=== PATIENT | female | born 1955 | race Caucasian/White ===

== ENCOUNTER → 2017-03-20 | Outpatient (CLI) | payer BC, OTHER ==
[2017-03-20 18:37] LABS: ALB/GLOB RATIO 0.8 (0.9-2); ALT/SGPT 22 U/L (12-78); AST/SGOT 22 U/L (15-37); BLOOD UREA NITROGEN 23 mg/dl (7-18); CARBON DIOXIDE 27 mmol/L (21-32); CHLORIDE 105 mmol/L (98-107); CREATININE 0.91 mg/dl (0.60-1.20); GLUCOSE,FASTING 87 mg/dl (70-99); POTASSIUM 3.9 mmol/L (3.5-5.1); SODIUM 139 mmol/L (136-145)
[2017-03-20 18:39] LABS: ALKALINE PHOSPHATASE 81 U/L (45-117); CHOLESTEROL 205 mg/dl (0-200); CHOLESTEROL/HDL RATIO 3.3; HDL CHOLESTEROL 62 mg/dl; LDL CHOLESTEROL CALCULATED 126 mg/dl; TRIGLYCERIDES 86 mg/dl (0-150); VERY LOW DENSITY LIPOPROT CALC 17 mg/dl
== END | disposition home or self-care (01) ==
LOC: C.LABPBG 11:46
PROVIDERS: ATTEND Physician Assistant
DX: Z00.00 Encounter for general adult medical examination without abnormal findings (principal)

== ENCOUNTER → 2017-03-27 | Outpatient (CLI) | payer BC ==
[2017-03-27 16:53] LABS: BASO % 0.3 %; BASO ABS # 0.02 K/uL (0-0.2); COMPLETE YES; EOS % 3.3 %; HEMATOCRIT 41.1 % (37-47); IG% 0.2 %; LYMPH % 41.8 %; LYMPH ABS # 2.44 K/uL (1.2-3.4); MEAN CELL VOLUME 88.2 fL (80-100); MEAN CORPUSCULAR HEMOGLOBIN 29.6 pg (25-34); MEAN CORPUSCULAR HGB CONC 33.6 g/dl (32-36); MEAN PLATELET VOLUME 10.5 fL (7.4-10.4); MONO % 7.2 %; NEUT % 47.2 %; PLATELET COUNT 321 K/uL (130-400); RED BLOOD COUNT 4.66 M/uL (4.2-5.4); WHITE BLOOD COUNT 5.84 K/uL (4.8-10.8)
[2017-03-27 17:06] LABS: URINE APPEARANCE CLEAR (CLEAR); URINE BILIRUBIN NEG (NEG); URINE COLOR YELLOW; URINE NITRITE NEG (NEG); URINE SPECIFIC GRAVITY 1.019 (1.000-1.030); UROBILINOGEN NEG (NEG)
[2017-03-27 17:12] LABS: MANUAL MICROSCOPIC REQUIRED? NO; REVIEW REQ? NO
[2017-03-27 17:23] LABS: AST/SGOT 22 U/L (15-37)
[2017-03-27 17:24] LABS: ALT/SGPT 24 U/L (12-78)
[2017-03-31 04:59] LABS: ANTI-CENTROMERE AB <1.0 NEG AI (<1.0 NEG); ANTI-SS-A 3.6 POS AI (<1.0 NEG); ANTI-SS-B <1.0 NEG AI (<1.0 NEG); DNA ds CRITHIDIA NEGATIVE (NEGATIVE); Sm Antibody <1.0 NEG AI (<1.0 NEG)
== END | disposition home or self-care (01) ==
LOC: C.LAB1850 15:17
PROVIDERS: ATTEND Internal Medicine Rheumatology
DX: M32.9 Systemic lupus erythematosus, unspecified (principal); Z79.899 Other long term (current) drug therapy; Z79.1 Long term (current) use of non-steroidal anti-inflammatories (NSAID)

== ENCOUNTER → 2017-04-10 | Outpatient (CLI) | payer BC ==
--- NOTE | 2017-04-18 12:38 | MAMMOGRAPHY REPORT ---
BILATERAL DIGITAL SCREENING MAMMOGRAM TOMOSYNTHESIS WITH CAD: 04/10/2017 CLINICAL HISTORY: Routine screening. Patient has no complaints. TECHNIQUE: Breast tomosynthesis in addition to standard 2D mammography was performed. Current study was also evaluated with a Computer Aided Detection (CAD) system. COMPARISON: Comparison is made to exams dated: 08/31/2012 mammogram, 03/31/2011 mammogram, 07/24/2009 fine needle aspiration, 07/20/2009 mammogram, and 09/06/2007 mammogram - [facility]. BREAST COMPOSITION: There are scattered areas of fibroglandular density in both breasts. FINDINGS: There are possible grouped calcifications in the left 12:00 and right superior breast, for which spot magnification views are recommended for further evaluation. The remainder of both breasts demonstrate no suspicious masses, calcifications, or areas of edi architect ural distortion. Circumscribed round 11 mm mass in the right upper outer quadrant is stable. A few other small round/oval circumscribed masses are also noted bilaterally, which likely represent cysts. IMPRESSION: ACR BI-RADS CATEGORY 0: INCOMPLETE EVALUATION: NEED ADDITIONAL IMAGING EVALUATION Bilateral calcifications, for which additional imaging evaluation is recommended. The patient will b e called to schedule an appointment. Approximately 10% of breast cancers are not detected with mammography. A negative mammographic report should not delay biopsy if a clinically suggestive mass is present. Julia Cooper M.D. ah/:04/14/2017 16:28:06 Corner Bead Operator: Mikki CHRISTENSEN)(M), [facility] letter sent: Addl Imaging 0 BI-RADS Code: ACR BI-RADS Category 0: Incomplete Evaluation: Need Additional Imaging Evaluation
== END | disposition home or self-care (01) ==
LOC: C.MAMM 07:44
PROVIDERS: ATTEND Physician Assistant
DX: Z12.31 Encounter for screening mammogram for malignant neoplasm of breast (principal)

== ENCOUNTER → 2017-09-04 | Outpatient (CLI) | payer OTHER ==
--- NOTE | 2017-09-04 13:12 | DIAGNOSTIC IMAGING REPORT ---
RIGHT KNEE 2 VIEWS CLINICAL HISTORY: Inflammatory polyarthritis. FINDINGS: AP and lateral views of the right knee are obtained. No prior studies are available for comparison at the time of dictation. The skeletal structures are osteopenic. No fracture is identified. There is moderate to advanced degenerative narrowing at the patellofemoral articulation with bony sclerosis and subchondral cyst formation. Mild narrowing is seen in the medial and lateral compartments. There are large marginal osteophytes and patellar enthesophytes. A calcified fabella is incidentally noted. A small joint effusion is identified. The overlying soft tissues are within normal limits. IMPRESSION: 1. Osteopenia and arthritic change as above. 2. Joint effusion. No acute bony abnormality is seen in the right knee. Electronically signed by: Rickie Gabriel M.D. 09/04/2017 1:11 PM Dictated Date/Time: 09/04/2017 1:10 PM
--- NOTE | 2017-09-04 13:13 | DIAGNOSTIC IMAGING REPORT ---
L KNEE 1 OR 2 VIEWS ROUTINE HISTORY: 61 years-old Female M06.4 Inflammatory [id number] chronic left knee pain COMPARISON: Right knee radiographs of same day TECHNIQUE: 2 views of the left knee FINDINGS: Bones are mildly demineralized. Mild joint space narrowing with subchondral sclerosis and marginal spurring involves the medial and lateral compartments. There is moderate to severe joint space narrowing with subchondral sclerosis, subcortical cystic changes and marginal spurring involving the patellofemoral joint. Small knee joint effusion. No definite erosive changes. No acute fracture or subluxation. No definite intra-articular loose body. Indeterminate 5 mm ossification is seen posterior to the proximal tibia. IMPRESSION: 1. Mildly demineralized bones without acute fracture or subluxation. 2. Mild medial and lateral with moderate to severe patellofemoral degenerative changes. No definite evidence of erosive arthropathy. 3. Small joint effusion. The above report was generated using voice recognition software. It may contain grammatical, syntax or spelling errors. Electronically signed by: Carmine James M.D. 09/04/2017 1:12 PM Dictated Date/Time: 09/04/2017 1:10 PM
--- NOTE | 2017-09-04 13:21 | DIAGNOSTIC IMAGING REPORT ---
R HAND MIN 3 VIEWS ROUTINE, L HAND MIN 3 VIEWS ROUTINE HISTORY: 61 years-old Female M06.4 Inflammatory [id number] chronic bilateral hand pain COMPARISON: None available TECHNIQUE: 3 views of the bilateral hands for a total of 6 images FINDINGS: LEFT: 3 mm corticated bone fragment is noted along the ulnar aspect of the second PIP joint suggesting fragmented osteophyte or remote avulsion fracture. Moderate radiocarpal and triscaphe joint space narrowing with subchondral sclerosis and marginal spurring. Severe degenerative changes are present within the first carpal metacarpal joint with a large subcortical lucency involving the base of the first metacarpal likely suggesting subcortical cyst with erosion felt to be left likely. Proliferative associated osteophytic spurring is noted. Mild carpal phalangeal and interphalangeal joint space narrowing is seen throughout without definite erosive changes identified. No significant soft tissue swelling. No acute fracture or subluxation. RIGHT: Subcortical cystic changes are present within the first and third metacarpal heads. Moderate joint space narrowing involves the third metacarpal phalangeal joint. Mild joint space narrowing is seen throughout the interphalangeal joints throughout the hand. Subcortical lucencies suggesting possible subcortical cystic changes are noted within several of the carpal bones and also within the base of the first metacarpal. Mild/moderate triscaphe and radiocarpal joint space narrowing with moderate to severe first carpometacarpal joint space narrowing, subchondral sclerosis and marginal osteophytic spurring. No acute fracture or subluxation. No opaque foreign body. IMPRESSION: 1. No acute fracture or subluxation. 2. Subcortical lucencies are noted involving the base of the first metacarpals bilaterally and also scattered throughout the carpal bones and phalanges as above suggesting subcortical cystic changes. 3. Multifocal joint space narrowing, subchondral sclerosis and marginal osteophytosis as above. No definite articular or periarticular erosions identified. The above report was generated using voice recognition software. It may contain grammatical, syntax or spelling errors. Electronically signed by: Carmine James M.D. 09/04/2017 1:20 PM Dictated Date/Time: 09/04/2017 1:13 PM
--- NOTE | 2017-09-05 07:03 | DIAGNOSTIC IMAGING REPORT ---
LUMBAR SPINE 5 VIEWS CLINICAL HISTORY: Inflammatory polyarthritis. FINDINGS: Five views of the lumbar spine are obtained. No prior studies are available for comparison at the time of dictation. The skeletal structures were osteopenic. There is no radiographic evidence of fracture or malalignment. Minimal anterolisthesis is seen at L4-L5. Alignment is otherwise preserved. Small anterior osteophytes are seen throughout. The transverse and spinous processes appear intact. There is no evidence of spondylolysis on the oblique views. Facet arthropathy is seen in the lower lumbar region. There is moderate to advanced disc space narrowing at L3-L4 and L5-S1 with associated endplate sclerosis. Minimal disc space narrowing is seen at L4-L5. A calcification is seen at the level of the L1-L2 disc. No bony erosion is identified. The bony pelvis is intact as imaged. There is a nonobstructed abdominal bowel gas pattern noting colonic fecal retention. Surgical clips project over the gastroesophageal junction. Foci of atherosclerotic calcification are noted in the abdominal aorta. IMPRESSION: 1. No acute bony abnormality is seen involving the lumbar spine. 2. Osteopenia and spondylotic change as above. Dictated: 09/04/2017 1:17 PM Transcribed: 09/05/2017 7:03 AM [email or web address] Electronically signed by: Rickie Gabriel M.D. 09/05/2017 7:13 AM Dictated Date/Time: 09/04/2017 1:17 PM
== END | disposition home or self-care (01) ==
LOC: C.LAB1850 12:42
PROVIDERS: ATTEND Internal Medicine Rheumatology
DX: M06.4 Inflammatory polyarthropathy (principal); M89.9 Disorder of bone, unspecified; M25.742 Osteophyte, left hand; M85.89 Other specified disorders of bone density and structure, multiple sites; M25.461 Effusion, right knee; M25.462 Effusion, left knee

== ENCOUNTER 2023-07-25 07:14 | Observation (INO) ==
--- NOTE | 2023-05-23 09:50 | History & Physical Report ---
Date of Service May 23, 2023 date of surgery: 06/14/23 Procedure: Right Total Knee Arthroplasty Surgeon: Yony Benitez Assessment & Plan (1) Arthritis of right knee: Plan: Further care discussed with patient and at this point in time has failed conservative measures and would like to proceed with a right total knee replacement. Plan on discharge will be home with home health physical therapy. DVT prophylaxiswith TEDs, SCDs and will also place on aspirin 81 mg p.o. b.i.d. for a month postop. Patient will have follow up appointment in our office two weeks post op for staple/suture removal and re-evaluation. Patient otherwise has no other questions or concerns. The risks and benefits have been discussed including, but not limited to, risk of infection, nerve injury, stiffness, loss of motion, failure to improve, etc. Reasonable outcomes and options of treatment were discussed. An explanation of appropriate alternatives to the procedure that may be advantageous were discussed and their risks and benefits, as well as the risks and benefits of not proceeding with treatment. I offered to answer any additional inquiries concerning the treatment involved. All the patient's questions were answered. The patient is agreeable, understanding of the treatment plan and alternatives, and wishes to proceed with the treatment plan. History of Present Illness Chief Complaint: Right knee pain Primary Care Provider: Lu Rosales DO Silvia is a 67 year old female who complains of right knee pain, presented for pre-op evaluation prior to a right total knee replacement by Dr Benitez at [facility]. She complains of pain and decreased range of motion in the right knee. she states that the symptoms have been chronic and non-traumatic. Currently the patient states that the symptoms are moderate-severe and is described as aching, sharp and throbbing. Her symptoms are aggravated by ascending stairs, daily activities, first steps while awake walking. Prior NSAIDs include IBU and Aleve. She has been treated with previous visco and cortisone injections in the past without much relief. Allergies Allergy/AdvReac Type Severity Reaction Status Date / Time amoxicillin [From Augmentin] Allergy Mild BLISTERS Verified 05/23/23 08:58 clavulanic acid Allergy Mild BLISTERS Verified 05/23/23 08:58 [From Augmentin] doxycycline Allergy Mild rash on Verified 05/23/23 08:58 face Sulfa (Sulfonamide Allergy Mild BLISTERS Verified 05/23/23 08:58 Antibiotics) nickel Allergy swelling Verified 05/23/23 09:43 of ears morphine AdvReac Intermediate PARANOID Verified 05/23/23 08:58 oxycodone AdvReac Mild "VERY SICK" Verified 05/23/23 08:58 Home Medications Medication Instructions Recorded Confirmed Type omega-3 fatty acids 1,000 mg 1,000 mg PO DAILY #30 caps 11/26/19 05/23/23 Rx capsule (Fish Oil Concentrate) cetirizine 10 mg tablet (Zyrtec) 10 mg PO DAILY PRN ALLERGY RELIEF 05/05/20 05/23/23 History cholecalciferol (vitamin D3) 125 125 mcg PO DAILY 06/16/20 05/23/23 History mcg (5,000 unit) capsule diclofenac sodium 1 % topical gel 2 g topical QID PRN Pain 11/09/21 05/23/23 History Soolantra 1 % topical cream 1 applic topical DAILY #45 grams 02/09/22 05/23/23 Rx (ivermectin) carboxymethylcellulose sodium 0.5 1 drp ophthalmic (eye) BID 08/11/22 05/23/23 History % eye drops (Refresh Tears) omeprazole 40 mg capsule,delayed 40 mg PO QAM 08/11/22 05/23/23 History release atorvastatin 20 mg tablet 20 mg PO QPM #90 tabs 01/18/23 05/23/23 Rx famotidine 20 mg tablet 20 mg PO HS #90 tabs 02/03/23 05/23/23 Rx cevimeline 30 mg capsule 30 mg PO BID #180 caps 04/13/23 05/23/23 Rx hydroxychloroquine 200 mg tablet 200 mg PO BID #180 tabs 04/13/23 05/23/23 Rx enalapril maleate 20 mg tablet 20 mg PO BID #180 tabs 05/05/23 05/23/23 Rx diclofenac sodium 75 mg 150 mg PO QAM 05/23/23 05/23/23 History tablet,delayed release estradiol 1 mg tablet 1 mg PO QAM 05/23/23 05/23/23 History fluticasone propionate 50 2 spray intranasal DAILY PRN 05/23/23 05/23/23 History mcg/actuation nasal Congestion spray,suspension (Flonase Allergy Relief) hydrochlorothiazide 25 mg tablet 25 mg PO QAM 05/23/23 05/23/23 History levothyroxine 75 mcg tablet 75 mcg PO QAM 05/23/23 05/23/23 History sertraline 100 mg tablet 100 mg PO QAM 05/23/23 05/23/23 History Past Med/Surg History Medical History Erosive osteoarthritis of both hands Fibromyalgia GERD (gastroesophageal reflux disease) History of kidney stones passed on own Hx of rosacea Hyperlipidemia Hypertension Hypothyroidism IBS (irritable bowel syndrome) Lumbar spinal stenosis Lupus (systemic lupus erythematosus) (~2020) Migraine Osteoarthritis Prediabetes Raynaud disease Sjogrens syndrome Sleep apnea NO DEVICE Spinal stenosis 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, clicking more often than locking Vitamin D deficiency Surgical History Benign tumor REMOVED FROM CHEST Cyst BENIGN/REMOVAL H/O total hysterectomy History of bladder surgery SLING History of colonoscopy History of esophagogastroduodenoscopy (EGD) History of herniorrhaphy History of wisdom tooth extraction Hx of tonsillectomy S/P bilateral cataract extraction (12/2021) Family History Mother Lupus CHF (congestive heart failure) Anxiety Depression Hypertension Atrial fibrillation Father Throat cancer Prostate cancer Diabetes Anxiety Depression Kidney stones Myocardial infarction Hypertension Family history of diabetes mellitus Stroke Brother Depression Hypertension Grandfather (Paternal) Colorectal cancer Family hx of colon cancer Other Family history non-contributory Denies family history of Ovarian cancer Breast cancer Social History Smoking Status: Never smoker Second Hand Exposure: Yes (hx as child); Do You Dip or Chew Tobacco: No; Tobacco Cessation Education Requested by Patient: No Hx Alcohol Use: Yes Alcohol type: wine Alcohol Intake Frequency: Monthly or Less Hx Substance Use: No Preferred Language: Estonian Communication Ability: Effective Visual Impairment: No Limitations Hearing Ability: Normal Supervisor [employer] Required: No Beliefs That Will Affect Care: None marital status: Current Living Situation: Family Current Living Situation Comment: lives with son current occupational status: employed current occupation: [email or web address] Other Information That Helps Us Care for You: No Feels Safe at Home: Yes Safety Concerns: Feels Safe At This Time Childhood Exposure to Second-Hand Smoke: No Diet: regular Diet Comment: regular caffeine: Yes (Coffee x 2 per day; Tea x 4 per day.) during the past year weight has: remained stable Dental Care, Regularly: Yes Physical Activity Frequency: Other Physical Activity Frequency Comment: limited due to physical condition Seatbelt Use: always Sunscreen Use: Yes Assistive Devices: None Review of Systems Review of Systems: All systems reviewed & are unremarkable except as noted in HPI & below Constitutional: no fever, no chills and no sweats Respiratory: no cough and no dyspnea Cardiovascular: no chest pain, no dyspnea and no orthopnea Gastrointestinal: no abdominal pain, no nausea and no vomiting Musculoskeletal: as per Subjective / HPI Physical Exam Constitutional: WD/WN, vitals as above no acute distress Respiratory: normal respiratory effort, lungs clear to auscultation no respiratory distress, no labored breathing and does not use accessory muscles Cardiovascular: RRR, no murmur, no edema Gastrointestinal (Abdomen): normal bowel sounds, soft, nontender, no hepat osplenomegaly Musculoskeletal: Knee: + knee abnormal to inspection (RIGHT KNEE), + effusion (+1 effusion), + limited ROM of knee (ROM 0/3/110), + knee ROM with crepitation, + joint line tenderness (medial joint line) and + Vaughn's sign positive; no deformity, no skin erythema, no ecchymosis, no valgus laxity, no varus laxity, anterior drawer test negative, Francisco's sign negative and pivot shift test negative Results & Data Results & Data Diagnostic Findings X-rays were reviewed from January 2023, 4-view bilateral knee series shows advanced tricompartmental degenerative changes of both knees.
--- NOTE | 2023-05-24 11:21 | PAT Medication Instructions ---
Medication Instructions Date of Service May 24, 2023 Home Medications Medication Instructions Recorded omega-3 fatty acids 1,000 mg 1,000 mg PO DAILY #30 caps 11/26/19 capsule (Fish Oil Concentrate) Soolantra 1 % topical cream 1 applic topical DAILY #45 grams 02/09/22 (ivermectin) atorvastatin 20 mg tablet 20 mg PO QPM #90 tabs 01/18/23 famotidine 20 mg tablet 20 mg PO HS #90 tabs 02/03/23 cevimeline 30 mg capsule 30 mg PO BID #180 caps 04/13/23 hydroxychloroquine 200 mg tablet 200 mg PO BID #180 tabs 04/13/23 enalapril maleate 20 mg tablet 20 mg PO BID #180 tabs 05/05/23 omega-3 fatty acids 1,000 mg capsule (Fish Oil Concentrate) 1,000 mg PO DAILY cetirizine 10 mg tablet (Zyrtec) 10 mg PO DAILY PRN ALLERGY RELIEF cholecalciferol (vitamin D3) 125 mcg (5,000 unit) capsule 125 mcg PO DAILY diclofenac sodium 1 % topical gel 2 g topical QID PRN Pain Soolantra 1 % topical cream (ivermectin) 1 applic topical DAILY carboxymethylcellulose sodium 0.5 % eye drops (Refresh Tears) 1 drp ophthalmic (eye) BID omeprazole 40 mg capsule,delayed release 40 mg PO QAM atorvastatin 20 mg tablet 20 mg PO QPM famotidine 20 mg tablet 20 mg PO HS cevimeline 30 mg capsule 30 mg PO BID hydroxychloroquine 200 mg tablet 200 mg PO BID enalapril maleate 20 mg tablet 20 mg PO BID diclofenac sodium 75 mg tablet,delayed release 150 mg PO QAM estradiol 1 mg tablet 1 mg PO QAM fluticasone propionate 50 mcg/actuation nasal spray,suspension (Flonase Allergy Relief) 2 spray intranasal DAILY PRN Congestion hydrochlorothiazide 25 mg tablet 25 mg PO QAM levothyroxine 75 mcg tablet 75 mcg PO QAM sertraline 100 mg tablet 100 mg PO QAM ASK your surgeon for instructions diclofenac sodium 1 % topical gel 2 g topical QID PRN Pain diclofenac sodium 75 mg tablet,delayed release 150 mg PO QAM ASK your prescriber and surgeon hydroxychloroquine 200 mg tablet 200 mg PO BID estradiol 1 mg tablet 1 mg PO QAM STOP taking 2 weeks before surgery omega-3 fatty acids 1,000 mg capsule (Fish Oil Concentrate) 1,000 mg PO DAILY STOP taking 24 hours before surgery Soolantra 1 % topical cream (ivermectin) 1 applic topical DAILY DO NOT take the morning of surgery cetirizine 10 mg tablet (Zyrtec) 10 mg PO DAILY PRN ALLERGY RELIEF cholecalciferol (vitamin D3) 125 mcg (5,000 unit) capsule 125 mcg PO DAILY cevimeline 30 mg capsule 30 mg PO BID enalapril maleate 20 mg tablet 20 mg PO BID hydrochlorothiazide 25 mg tablet 25 mg PO QAM Take morning of surgery With a small sip of water, OTHERWISE NOTHING TO EAT OR DRINK AFTER MIDNIGHT: carboxymethylcellulose sodium 0.5 % eye drops (Refresh Tears) 1 drp ophthalmic (eye) BID omeprazole 40 mg capsule,delayed release 40 mg PO QAM fluticasone propionate 50 mcg/actuation nasal spray,suspension (Flonase Allergy Relief) 2 spray intranasal DAILY PRN Congestion (if needed) levothyroxine 75 mcg tablet 75 mcg PO QAM sertraline 100 mg tablet 100 mg PO QAM Take evening before surgery cetirizine 10 mg tablet (Zyrtec) 10 mg PO DAILY PRN ALLERGY RELIEF (if needed) carboxymethylcellulose sodium 0.5 % eye drops (Refresh Tears) 1 drp ophthalmic (eye) BID atorvastatin 20 mg tablet 20 mg PO QPM famotidine 20 mg tablet 20 mg PO HS enalapril maleate 20 mg tablet 20 mg PO BID fluticasone propionate 50 mcg/actuation nasal spray,suspension (Flonase Allergy Relief) 2 spray intranasal DAILY PRN Congestion (if needed) cevimeline 30 mg capsule 30 mg PO BID Other Notes If you have any questions please call us at [phone] or [phone] or [phone] or [phone]
--- NOTE | 2023-05-29 11:58 | Anesthesiology Consultation ---
Date of Service May 29, 2023 Assessment & Plan (1) Encounter for pre-operative examination: Plan - awaiting PCP response to workload note regarding anemia and dyspnea on exertion and upcoming appointment 06/05/23. - patient has concerns with potential awareness with upcoming procedure as a friend recently reported undergoing surgery and experiencing awareness. I listened to patient's concerns and we discussed anesthesia options of neuraxial vs general. She expressed desire to proceed with plan for neuraxial anesthesia give her Lupus, expressed understanding her final decision can be with anesthesiologist makayla CARVER. She expressed questions/concerns were adequately addressed, declined discussion with anesthesiologist. Chart Review Chart Review: Pending: Refer to Additional Notes / Consult section and Patient seen in Pre Admission Testing Teaching & Discussion Pre-Anesthesia Teaching/Discussion Notes: Instructed NPO after midnight before surgery, except medications with 15 cc of water. Medication instructions provided according to the PAT guidelines. History Surgery Operation Date: 06/14/23 11:30 Proposed Procedures p Right Total Knee Arthroplasty - Yony Benitez, Height/Weight Height: 5 ft 8.5 in Weight: 95.5 kg Allergies Allergy/AdvReac Type Severity Reaction Status Date / Time oxycodone Allergy Intermediate nausea and Verified 05/29/23 11:53 vomiting amoxicillin [From Augmentin] Allergy Mild BLISTERS Verified 05/23/23 08:58 clavulanic acid Allergy Mild BLISTERS Verified 05/23/23 08:58 [From Augmentin] doxycycline Allergy Mild rash on Verified 05/23/23 08:58 face Sulfa (Sulfonamide Allergy Mild BLISTERS Verified 05/23/23 08:58 Antibiotics) nickel Allergy swelling Verified 05/23/23 09:43 of ears morphine AdvReac Intermediate PARANOID Verified 05/23/23 08:58 Medications Home Medications Medication Instructions Recorded Confirmed Last Taken omega-3 fatty acids 1,000 mg 1,000 mg PO DAILY #30 caps 11/26/19 05/23/23 05/09/20 capsule (Fish Oil Concentrate) cetirizine 10 mg tablet (Zyrtec) 10 mg PO DAILY PRN ALLERGY RELIEF 05/05/20 05/23/23 05/08/20 cholecalciferol (vitamin D3) 125 125 mcg PO DAILY 06/16/20 05/23/23 Unknown mcg (5,000 unit) capsule diclofenac sodium 1 % topical gel 2 g topical QID PRN Pain 11/09/21 05/23/23 Unknown Soolantra 1 % topical cream 1 applic topical DAILY #45 grams 02/09/22 05/23/23 Unknown (ivermectin) carboxymethylcellulose sodium 0.5 1 drp ophthalmic (eye) BID 08/11/22 05/23/23 Unknown % eye drops (Refresh Tears) omeprazole 40 mg capsule,delayed 40 mg PO QAM 08/11/22 05/23/23 Unknown release atorvastatin 20 mg tablet 20 mg PO QPM #90 tabs 01/18/23 05/23/23 Unknown famotidine 20 mg tablet 20 mg PO HS #90 tabs 02/03/23 05/23/23 Unknown cevimeline 30 mg capsule 30 mg PO BID #180 caps 04/13/23 05/23/23 Unknown hydroxychloroquine 200 mg tablet 200 mg PO BID #180 tabs 04/13/23 05/23/23 Unknown enalapril maleate 20 mg tablet 20 mg PO BID #180 tabs 05/05/23 05/23/23 Unknown diclofenac sodium 75 mg 150 mg PO QAM 05/23/23 05/23/23 Unknown tablet,delayed release estradiol 1 mg tablet 1 mg PO QAM 05/23/23 05/23/23 Unknown fluticasone propionate 50 2 spray intranasal DAILY PRN 05/23/23 05/23/23 Unknown mcg/actuation nasal Congestion spray,suspension (Flonase Allergy Relief) hydrochlorothiazide 25 mg tablet 25 mg PO QAM 05/23/23 05/23/23 Unknown levothyroxine 75 mcg tablet 75 mcg PO QAM 05/23/23 05/23/23 Unknown sertraline 100 mg tablet 100 mg PO QAM 05/23/23 05/23/23 Unknown Past Medical History Medical History (Updated 05/29/23 @ 11:54 by Angela Romano PA-C) Erosive osteoarthritis of both hands Fibromyalgia GERD (gastroesophageal reflux disease) controlled, stable per pt History of kidney stones passed on own Hx of rosacea Hyperlipidemia Hypertension controlled, stable per pt Hypothyroidism IBS (irritable bowel syndrome) Lumbar spinal stenosis Lupus (systemic lupus erythematosus) (~2020) Migraine Prediabetes Raynaud disease Sjogrens syndrome Sleep apnea NO DEVICE 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 occurrence, clicking more often than locking Patient denies h/o stroke, seizures, heart attack, heart failure, blood clots/DVTs or blood transfusions. Exercise / Class Metabolic Activity II 4-5 Yardwork/Stairs/Walk up hill (mild SOB with 1 FOS ongoing x yrs improved with hypothyroidism treatment; denies chest discomfort) Past Family History Family History Mother Lupus CHF (congestive heart failure) Anxiety Depression Hypertension Atrial fibrillation Father Throat cancer Prostate cancer Diabetes Anxiety Depression Kidney stones Myocardial infarction Hypertension Family history of diabetes mellitus Stroke Brother Depression Hypertension Grandfather (Paternal) Colorectal cancer Family hx of colon cancer Other Family history non-contributory Denies family history of Ovarian cancer Breast cancer Past Surgical History Surgical History Benign tumor REMOVED FROM CHEST Cyst BENIGN/REMOVAL H/O total hysterectomy History of bladder surgery SLING History of colonoscopy History of esophagogastroduodenoscopy (EGD) History of herniorrhaphy History of wisdom tooth extraction Hx of tonsillectomy S/P bilateral cataract extraction (12/2021) Past Anesthesia History No Hx of Anesthesia Complications and No Family Hx of Anesthesia Complications History of PONV No Hx of PONV and Hx of Motion Sickness Social History Smoking Status: Never smoker Do You Dip or Chew Tobacco: No Hx Alcohol Use: Yes Alcohol type: wine alcohol intake frequency: holidays/special occasions only Hx Substance Use: No substance use type: does not use Review of Systems Patient denies chest pain, fever, chills, cough, wheezing, or palpitations. Physical Exam Vital Signs Vitals BP 128/858 P 60 TEMP 97.5 SP02 96% on RA RESP 18 Physical Patient resting comfortably in chair in no acute distress, alert and oriented, responding appropriately throughout visit Full cervical extension range of motion without pain TMD 3.5 finger breadths Mallampati Score 1 Dentition: several crowns, denies chipped or loose teeth, caps, implants or bridges Lungs: normal respiratory effort. Good air movement, clear throughout to auscultation, no adventitious breath sounds Cardiac: regular rate and rhythm, no murmurs noted Carotid arteries: negative bruit bilat Lab Results Anesthesia Preop Results Results Anesthesia Widget: WBC 4.68 K/ul (4.8-10.8) L 05/29/23 Hgb 10.4 g/dl (12.0-16.0) L 05/29/23 Hct 31.3 % (37.0-47.0) L 05/29/23 Plt 322 K/uL (130-400) 05/29/23 Na 136 mmol/L (136-145) 05/29/23 K 3.8 mmol/L (3.5-5.1) 05/29/23 Cl 101 mmol/L (98-107) 05/29/23 CO2 29 mmol/L (21-32) 05/29/23 BUN 24 mg/dl (6-23) H 05/29/23 Creat 0.98 mg/dl (0.6-1.2) 05/29/23 Glucose Level 88 mg/dl (70-99(Fasting)) 05/29/23 PT 10.9 Seconds (9.0-12.0) 05/29/23 PTT 30.4 Seconds (21.0-31.0) 05/29/23 INR 1.0 (0.9-1.1) 05/29/23 HA1c 5.6 % (4.5-5.6) 05/29/23 Urine Color Yellow 05/29/23 Urine Appearance Clear (Clear) 05/29/23 Urine pH 5.5 (4.5-7.5) 05/29/23 Urine Specific [place] 1.019 (1.000-1.030) 05/29/23 Urine Protein Negative (Negative) 05/29/23 Urine Glucose (UA) Negative (Negative) 05/29/23 Urine Ketones Negative (Negative) 05/29/23 Urine Blood Negative (Negative) 05/29/23 Urine Nitrite Negative (Negative) 05/29/23 Urine Bilirubin Negative (Negative) 05/29/23 Urine Urobilinogen Negative (Negative) 05/29/23 Urine Leukocyte Esterase Negative (Negative) 05/29/23 Blood Type O Positive 05/29/23 Antibody Screen NEGATIVE 05/29/23 Testing Electrocardiogram Date: 05/29/23 Sinus bradycardia, rate 59 bpm Chest X-Ray Date: 05/29/23 No acute cardiopulmonary findings Stress Test Date: 09/14/22 No evidence of stress induced ischemia MPHR 72%
--- NOTE | 2023-06-28 08:39 | History & Physical Report ---
Date of Service June 28, 2023 date of surgery: 07/25/23 Procedure: Right Total Knee Arthroplasty Surgeon: Yony Benitez DO Assessment & Plan (1) Arthritis of right knee: Plan: Further care discussed with patient and at this point in time has failed cons ervative measures and would like to proceed with a right total knee replacement. Plan on discharge will be home with home health physical therapy. DVT prophylaxiswith TEDs, SCDs and will also place on aspirin 81 mg p.o. b.i.d. for a month postop. Patient will have follow up appointment in our office two weeks post op for staple/suture removal and re-evaluation. Patient otherwise has no other questions or concerns. The risks and benefits have been discussed including, but not limited to, risk of infection, nerve injury, stiffness, loss of motion, failure to improve, etc. Reasonable outcomes and options of treatment were discussed. An explanation of appropriate alternatives to the procedure that may be advantageous were discussed and their risks and benefits, as well as the risks and benefits of not proceeding with treatment. I offered to answer any additional inquiries concerning the treatment involved. All the patient's questions were answered. The patient is agreeable, understanding of the treatment plan and alternatives, and wishes to proceed with the treatment plan. History of Present Illness Chief Complaint: Right knee pain Primary Care Provider: Lu Rosales DO Silvia is a 67 year old female who complains of right knee pain, presented for pre-op evaluation prior to a right total knee replacement by Dr Benitez at [facility]. She complains of pain and decreased range of motion in the right knee. she states that the symptoms have been chronic and non-traumatic. Currently the patient states that the symptoms are moderate-severe and is described as aching, sharp and throbbing. Her symptoms are aggravated by ascending stairs, daily activities, first steps while awake walking. Prior NSAIDs include IBU and Aleve. She has been treated with previous visco and cortisone injections in the past without much relief. Allergies Allergy/AdvReac Type Severity Reaction Status Date / Time oxycodone Allergy Intermediate nausea and Verified 06/20/23 15:47 vomiting amoxicillin [From Augmentin] Allergy Mild BLISTERS Verified 06/20/23 15:47 clavulanic acid Allergy Mild BLISTERS Verified 06/20/23 15:47 [From Augmentin] doxycycline Allergy Mild rash on Verified 06/20/23 15:47 face Sulfa (Sulfonamide Allergy Mild BLISTERS Verified 06/20/23 15:47 Antibiotics) nickel Allergy swelling Verified 06/20/23 15:47 of ears morphine AdvReac Intermediate PARANOID Verified 06/20/23 15:47 Home Medications Medication Instructions Recorded Confirmed Type omega-3 fatty acids 1,000 mg 1,000 mg PO DAILY #30 caps 11/26/19 06/05/23 Rx capsule (Fish Oil Concentrate) cetirizine 10 mg tablet (Zyrtec) 10 mg PO DAILY PRN ALLERGY RELIEF 05/05/20 History cholecalciferol (vitamin D3) 125 125 mcg PO DAILY 06/16/20 06/05/23 History mcg (5,000 unit) capsule Soolantra 1 % topical cream 1 applic topical DAILY #45 grams 02/09/22 06/05/23 Rx (ivermectin) carboxymethylcellulose sodium 0.5 1 drp ophthalmic (eye) BID 08/11/22 06/05/23 History % eye drops (Refresh Tears) omeprazole 40 mg capsule,delayed 40 mg PO QAM 08/11/22 06/05/23 History release atorvastatin 20 mg tablet 20 mg PO QPM #90 tabs 01/18/23 06/05/23 Rx famotidine 20 mg tablet 20 mg PO HS #90 tabs 02/03/23 06/05/23 Rx cevimeline 30 mg capsule 30 mg PO BID #180 caps 04/13/23 06/05/23 Rx hydroxychloroquine 200 mg tablet 200 mg PO BID #180 tabs 04/13/23 06/05/23 Rx enalapril maleate 20 mg tablet 20 mg PO BID #180 tabs 05/05/23 06/05/23 Rx estradiol 1 mg tablet 1 mg PO QAM 05/23/23 06/05/23 History fluticasone propionate 50 2 spray intranasal DAILY PRN 05/23/23 06/05/23 History mcg/actuation nasal Congestion spray,suspension (Flonase Allergy Relief) hydrochlorothiazide 25 mg tablet 25 mg PO QAM 05/23/23 06/05/23 History levothyroxine 75 mcg tablet 75 mcg PO QAM 05/23/23 06/05/23 History sertraline 100 mg tablet 100 mg PO QAM 05/23/23 06/05/23 History coenzyme Q10 100 mg capsule (Co 100 mg PO DAILY 06/05/23 06/05/23 History Q-10) diclofenac sodium 1 % topical gel 2 g topical QID PRN Pain #100 grams 06/19/23 Rx diclofenac sodium 75 mg 150 mg (2 x 75 mg) PO QAM #60 tabs 06/20/23 Rx tablet,delayed release Past Med/Surg History Medical History Hx of rosacea Lumbar spinal stenosis Hypothyroidism Prediabetes Lupus (systemic lupus erythematosus) (~2020) History of kidney stones passed on own GERD (gastroesophageal reflux disease) controlled, stable per pt IBS (irritable bowel syndrome) 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 occurrence, clicking more often than locking Migraine Sleep apnea NO DEVICE Erosive osteoarthritis of both hands Hyperlipidemia Hypertension controlled, stable per pt Raynaud disease Fibromyalgia Sjogrens syndrome Surgical History S/P bilateral cataract extraction (12/2021) History of esophagogastroduodenoscopy (EGD) History of colonoscopy H/O total hysterectomy History of bladder surgery SLING History of herniorrhaphy Cyst BENIGN/REMOVAL Benign tumor REMOVED FROM CHEST Hx of tonsillectomy History of wisdom tooth extraction Family History Mother Lupus CHF (congestive heart failure) Anxiety Depression Hypertension Atrial fibrillation Father Throat cancer Prostate cancer Diabetes Anxiety Depression Kidney stones Myocardial infarction Hypertension Family history of diabetes mellitus Stroke Brother Depression Hypertension Grandfather (Paternal) Colorectal cancer Family hx of colon cancer Other Family history non-contributory Denies family history of Ovarian cancer Breast cancer Social History Smoking Status: Never smoker Second Hand Exposure: Yes (hx as child); Do You Dip or Chew Tobacco: No; Hx Alcohol Use: Yes Alcohol type: wine Alcohol Intake Frequency: Monthly or Less Hx Substance Use: No Preferred Language: Filipino Communication Ability: Effective Visual Impairment: No Limitations Hearing Ability: Normal Alumni Secretary Required: No Beliefs That Will Affect Care: None marital status: Current Living Situation: Family Current Living Situation Comment: lives with son current occupational status: employed current occupation: [employer] Feels Safe at Home: Yes Childhood Exposure to Second-Hand Smoke: No Diet: regular Diet Comment: regular caffeine: Yes (Coffee x 2 per day; Tea x 4 per day.) during the past year weight has: remained stable Dental Care, Regularly: Yes Physical Activity Frequency: Other Physical Activity Frequency Comment: limited due to physical condition Seatbelt Use: always Sunscreen Use: Yes Assistive Devices: None Review of Systems Constitutional: no fever, no chills and no sweats Respiratory: no cough and no dyspnea Cardiovascular: no chest pain, no dyspnea and no orthopnea Gastrointestinal: no abdominal pain, no nausea and no vomiting Musculoskeletal: as per Subjective / HPI Physical Exam Physical Exam: HT: 5ft 8.5in WT: 95.5kg Constitutional: WD/WN, vitals as above no acute distress Respiratory: normal respiratory effort, lungs clear to auscultation no respiratory distress, no labored breathing and does not use accessory muscles Cardiovascular: RRR, no murmur, no edema Gastrointestinal (Abdomen): normal bowel sounds, soft, nontender, no hepatosplenomegaly Musculoskeletal: Knee: + knee abnormal to inspection (RIGHT KNEE), + effusion (+1 effusion), + surgical incision (well healed portals), + limited ROM of knee (ROM 0/3/110), + knee ROM with crepitation, + joint line tenderness (medial joint line) and + Vaughn's sign positive; no deformity, no skin erythema, no ecchymosis, no valgus laxity, no varus laxity, anterior drawer test negative, Francisco's sign negative and pivot shift test negative Results & Data Results & Data Diagnostic Findings X-rays were reviewed from January 2023, 4-view bilateral knee series shows advanced tricompartmental degenerative changes of both knees.
[~2023-07-25 07:14] MED LIST: ACETAMINOPHEN 500 MG TAB PO SCH; ALLERGY Noted to ORDERED Medication SCH; CeleBREX 200 MG CAP PO SCH; FAMOTIDINE 20 MG TAB PO SCH; GABAPENTIN 600 MG DOSE PO SCH; LR 500ML BOLUS, THEN 15ML/HR IV SCH; LR 60ML/HR IV SCH; ROPIVACAINE 0.5% 5 MG/ML 30 ML VIAL ONE; ROPIVACAINE 0.5% HCL/PF 150 MG, BUPIVACAINE 0.75% MPF 20 ML, EPINEPHrine 30MG/30ML (OR ... INFIL SCH; TRANEXAMIC ACID 1,000 MG **IV Intra-op IV SCH; TRANEXAMIC ACID 1,000 MG **IV Pre-op IV SCH
[2023-07-25 08:17] LABS: Basophils # (auto) 0.03 K/uL (0.00-0.20); Basophils % (auto) 1.2 %; Eosinophils # (auto) 0.07 K/uL (0.00-0.50); Eosinophils % (auto) 2.7 %; Hematocrit (blood only) 30.4 % (37.0-47.0); Hemoglobin 10.1 g/dl (12.0-16.0); Lymphocytes # (auto) 0.59 K/uL (1.20-3.40); Lymphocytes % (auto) 22.8 %; Mean Corpuscular Hemoglobin 28.2 pg (25.0-34.0); Mean Corpuscular Hgb Conc 33.2 g/dL (32.0-36.0); Mean Corpuscular Volume 84.9 fL (80.0-100.0); Mean Platelet Volume 9.2 fL (9.4-12.4); Monocytes % (auto) 19.3 %; Platelet Count 242 K/uL (130-400); RDW Coefficient of Variation 14.1 % (11.5-14.5); RDW Standard Deviation 43.8 fL (36.4-46.3); Red Blood Count 3.58 M/uL (4.20-5.40); White Blood Count 2.59 K/ul (4.8-10.8)
[2023-07-25] MEDS ORDERED: PROPOFOL IV EMULSION 10 MG/ML 20 ML VIAL IV ONE (08:25)
[2023-07-25] MEDS ORDERED: fentaNYL citrate PF 100 MCG/2 ML VIAL ONE (08:25)
[2023-07-25] MEDS ORDERED: MIDAZOLAM HCL 1 MG/ML 2ML VIAL ONE ×2 (08:25)
[2023-07-25] MEDS ORDERED: LIDOCAINE 2% 2 ML VIAL/AMP(20MG/ML) INFIL ONE (08:25)
--- NOTE | 2023-07-25 08:33 | History & Physical Bridge Note ---
Date of Service July 25, 2023 History & Physical Bridge Note I have examined the patient, reviewed the History & Physical and in the interval since the performance of the History & Physical I have noted the following changes of clinical significance: no changes noted
[2023-07-25] MEDS ORDERED: HYDROmorphone INJ 1 MG/ML SYRINGE IV PRN (09:29)
[2023-07-25] MEDS ORDERED: KETOROLAC 30 MG/ML VIAL IV PRN (09:29)
[2023-07-25] MEDS ORDERED: ATROPINE SULFATE 0.1 MG/ML 10ML SYR IV PRN (09:29)
[2023-07-25] MEDS ORDERED: ONDANSETRON INJ 2 MG/ML 2 ML VIAL IV PRN ×2 (09:29→13:21)
[2023-07-25] MEDS ORDERED: ePHEDrine sulfate 50 MG/ML AMP IV PRN (09:29)
[2023-07-25] MEDS ORDERED: ceFAZolin 2,000 MG/15 ML IV PUSH IV ONE (10:27)
[2023-07-25] MEDS ORDERED: Nursing to Pharmacy Communication SCH (10:30)
[2023-07-25] MEDS ORDERED: ORTHO JOINT ANESTHETIC ONE (10:32)
--- NOTE | 2023-07-25 11:47 | Operative Report ---
Post Operative Report Pre & Post Diagnosis Operation Date: 07/25/23 09:25 Pre-Op Diagnosis: Right Knee Osteoarthritis Post-Op Diagnosis: Right Knee Osteoarthritis I identified the patient and participated in the time-out.: Yes Procedure Operation Date: 07/25/23 09:25 Actual Procedures p Right Total Knee Arthroplasty(Right) utilizing [employer] journey 2 patient-matched femur 5 tibia 5 poly 15 patella 35 jorge Benitez DO Surgeon Yony Benitez DO Batch Tank [employer] Estimated Blood Loss 5 Findings Consistent with Post-Op Diagnosis Patient presents with severe end-stage tricompartmental degenerative joint disease valgus alignment 10 degree flexion contracture eburnated [id number] marginal osteophytes subchondral sclerosis and cystic changes with a moderate to large effusion Specimens Bone and cartilage Drains Medium or Anesthesia Type MAC Spinal Regional Complications none Disposition Accompanied Patient To Recovery: No Disposition: Recovery Room Indications Patient presents with a severe end-stage tricompartmental degenerative joint disease after failed attempted conservative management with physical therapy anti-inflammatories relative rest activity modification corticosteroid injection above intraoperative findings were noted Description of Procedure After proper prepping and draping of the Right lower extremity anterior midline incision was made over the region of the extensor extensor mechanism after meticulous hemostasis was obtained and maintained in subcutaneous tissues a medial parapatellar incision was made The patella was subluxed lateralward the medial lateral gutter were cleaned from any hypertrophic synovitis and scar tissue of the distal femoral block was placed and the distal femoral osteotomy cut was made subsequently the chamfers anterior and posterior osteotomy cuts were made utilizing the 4-in-1 block the tibia was subsequently subluxed anteriorward medial and ateral meniscal remnants were excised in their entirety remnants of the anterior and posterior cruciate ligaments were excised in their entirety excellent exposure of the proximal tibia was obtained the tibial osteotomy guide was placed on the proximal tibial osteotomy cut was made once again the knee was irrigated with copious amounts of sterile saline solution the patella was subsequently everted lateralward thickened scar tissue around the patella was removed the patella was subsequently cut utilizing a freehand technique and was drilled prepared for final preparation and placement of patella socially flexion-extension gaps were checked and the equal and symmetric trials were placed to the appropriate femoral and tibial trials with poly-spacer being placed for equal flexion and extension gaps and full range of motion including extension to 0 and flexion to 140 the trial components after having been taken to recovery range of motion was subsequently removed meticulous hemostasis was obtained and maintained subsequently a knee block injection of joint cocktail including ropivacaine 0.5% 150 mg. Bupivacaine 0.5% epinephrine 1-200,030 mL's toradol 30 mg dexamethasone 4 mg ketamine 10 mg clonidine 100 micrograms normal saline solution 30 mg was infiltrated into the soft tissues of the posterior knee medial lateral gutters and periosteal synovium special attention was paid to protect neurovascular structures at all times subsequently trial components having been removed the knee was irrigated with sterile saline solution. debris was removed the proximal tibia was subsequently prepared and was made ready for the placement of the tibial component tibial component was also cemented and tamped into position the femoral component was subsequently placed and cemented in the position the patellar component was subsequently cemented in position because hemostasis once again obtained and maintained wound having been thoroughly irrigated with debridement and debridement lavage was performed as well as a medial parapatellar incision closed with #1 Vicryl in interrupted fashion subcutaneous was closed with #2 Vicryl skin was closed with skin clips. PA-C was necessary for prepping and drapping as well as wound closure of deep fascia Sub cutaneous tissue and skin and was necessary for the case. A sterile compressive dressing was placed patient was taken to recovery in stable condition of report dictated by Emmanuel I attest to the content of the Intraoperative Record and any orders documented therein. Any exceptions are noted below.Due to the complex nature of the procedure, the entire surgery was performed with the operational assistance of [employer]. The mobile unit assistant, under direct supervision, was involved in the actual performance of all aspects of the surgical procedure including hemostasis, tissue retraction and incision, instrument management, patient positioning, and wound closure. I attest to the content of the Intraoperative Record and any orders documented therein. Any exceptions are noted below.
--- NOTE | 2023-07-25 13:03 | Anesthesiology Progress Note ---
Date of Service July 25, 2023 Anesthesia Post Procedure Vital Signs Vital Signs: Temp Pulse Pulse Resp BP Pulse Ox O2 Del Method 07/25/23 12:55 36.4 C L 57 L 18 127/73 95 Room Air 07/25/23 12:45 56 L 17 139/73 93 Room Air 07/25/23 12:35 56 L 16 131/67 94 Room Air 07/25/23 12:26 37.2 C 78 12 128/82 98 Room Air 07/25/23 07:40 37.2 C 70 18 158/96 H 98 Room Air Transfer of Care Handoff Completed per policy Notes Mental Status: alert / awake / arousable Patient Amnestic to Procedure: Yes Nausea / Vomiting: adequately controlled Pain: adequately controlled Airway Patency, RR, SpO2: stable & adequate BP & HR: stable & adequate Hydration State: stable & adequate Neuraxial Anesthesia: was administered and sensory block is resolving Anesthetic Complications: no major complications apparent
[2023-07-25] MEDS ORDERED: diphenhydrAMINE 50 MG/ML VIAL IV PRN (13:21)
[2023-07-25] MEDS ORDERED: FLUTICASONE PROPIONATE NA SPR 16 GM BTL PRN (13:21)
[2023-07-25] MEDS ORDERED: NALOXONE HCL 0.4 MG/1 ML VIAL/CARP IV PRN (13:21)
[2023-07-25] MEDS ORDERED: bisacodyL 10 MG SUPP PR PRN (13:21)
[2023-07-25] MEDS ORDERED: HYDROmorphone INJ 0.5 MG/0.5 ML SYR IV PRN (13:21)
[2023-07-25] MEDS ORDERED: CETIRIZINE HCL 10 MG TABLET PO PRN (13:21)
[2023-07-25] MEDS ORDERED: MAGNESIUM HYDROXIDE SUSP 30 ML UDC PO PRN (13:21)
--- NOTE | 2023-07-25 14:25 | XRay Report ---
XR knee RT 1 or 2V routine HISTORY: 67 years-old Female Surgical Post Op right knee arthroplasty COMPARISON: 01/20/2023 TECHNIQUE: 2 views of the right knee FINDINGS: Total joint arthroplasty with patellar resurfacing. Expected postoperative soft tissue swelling with deep tissue air and surgical drainage catheter. No acute fracture or unexpected opaque foreign body. IMPRESSION: Total joint arthroplasty with expected postoperative changes. ACT 112: Negative or not required by law. The above report was generated using voice recognition software. It may contain grammatical, syntax o r spelling errors. Electronically signed by: Philipp James M.D. 07/25/2023 2:23 PM
[2023-07-25] MEDS: HYDROCODONE/ACETAMOPHEN 5/325MG TAB PO PRN ×2 (15:37→20:42)
[2023-07-25] MEDS: ASPIRIN 81 MG ECTAB PO SCH (20:43)
[2023-07-25] MEDS: ENALAPRIL MALEATE 10 MG TAB PO SCH (20:43)
[2023-07-25] MEDS: DOCUSATE SODIUM 100 MG CAP PO SCH (20:43)
[2023-07-25] MEDS: ARTIFICIAL TEARS OP SCH (20:52)
[2023-07-25] MEDS: ceFAZolin 2000MG 2,000 MG/15 ML SYR IV SCH (20:53)
[2023-07-25] MEDS: SODIUM CHLORIDE 0.9% 1,000 ML IV SCH ×2 (20:53→23:01)
[2023-07-25] MEDS ORDERED: FAMOTIDINE 20 MG TAB PO SCH (21:00)
[2023-07-25] MEDS ORDERED: ATORVASTATIN 20 MG TAB PO SCH (21:00)
[2023-07-25] MEDS ORDERED: SENNA 8.6 MG TAB PO SCH (21:00)
[2023-07-26] MEDS: ceFAZolin 2000MG 2,000 MG/15 ML SYR IV SCH (03:03)
[2023-07-26] MEDS: HYDROCODONE/ACETAMOPHEN 5/325MG TAB PO PRN (05:39)
[2023-07-26] MEDS ORDERED: LEVOTHYROXINE SODIUM 75 MCG TABLET PO SCH (06:30)
[2023-07-26 06:36] LABS: Hematocrit (blood only) 25.4 % (37.0-47.0); Hemoglobin 8.2 g/dl (12.0-16.0); Mean Corpuscular Hgb Conc 32.3 g/dL (32.0-36.0); Mean Corpuscular Volume 86.7 fL (80.0-100.0); Mean Platelet Volume 9.6 fL (9.4-12.4); Platelet Count 209 K/uL (130-400); RDW Standard Deviation 44.6 fL (36.4-46.3); Red Blood Count 2.93 M/uL (4.20-5.40); White Blood Count 4.06 K/ul (4.8-10.8)
[2023-07-26 06:54] LABS: BUN Creatinine Ratio 12.2 (10-20); Calcium 7.9 mg/dl (8.6-10.3); Creatinine Clr Calc Pharmacy 74.3 ml/min; Est GFR (African American) 77.2 ml/min; Est GFR (Non-African American) 66.6 ml/min; Potassium 4.1 mmol/L (3.5-5.1)
--- NOTE | 2023-07-26 07:16 | Orthopedic Progress Note ---
Date of Service July 26, 2023 Assessment & Plan (1) History of total right knee replacement: Plan: POD #1 s/p Right TKA pt/ot dvt proph with [facility]IAM/SCD/ASA plan for d/c home with HHPT when stable Admission and Anticipated Discharge Date Admission Date: July 25, 2023 Subjective POD #1 s/p Right TKA Review of Systems Constitutional: no fever, no chills and no sweats Respiratory: no cough and no dyspnea Cardiovascular: no chest pain and no dyspnea Gastrointestinal: no abdominal pain, no nausea and no vomiting Physical Exam Physical Exam: Vital Signs Temp Pulse Pulse Resp BP BP Pulse Ox 07/26/23 03:08 36.5 C 69 17 163/83 H 100 07/25/23 23:14 36.9 C 62 16 117/75 95 07/25/23 20:51 36.6 C 53 L 17 130/77 94 07/25/23 18:53 36.8 C 62 16 111/75 97 07/25/23 16:29 36.6 C 58 L 20 118/74 93 07/25/23 15:31 36.8 C 63 20 113/72 93 07/25/23 14:26 37.1 C 62 14 129/77 96 07/25/23 13:51 36.3 C L 57 L 16 124/79 94 07/25/23 13:21 36.5 C 55 L 16 126/83 94 07/25/23 13:05 60 15 126/71 94 07/25/23 12:55 36.4 C L 57 L 18 127/73 95 07/25/23 12:45 56 L 17 139/73 93 07/25/23 12:35 56 L 16 131/67 94 07/25/23 12:26 37.2 C 78 12 128/82 98 07/25/23 07:40 37.2 C 70 18 158/96 H 98 O2 Del Method 07/26/23 03:08 Room Air 07/25/23 23:14 Room Air 07/25/23 20:51 Room Air 07/25/23 18:53 Room Air 07/25/23 16:29 Room Air 07/25/23 15:31 Room Air 07/25/23 14:26 Room Air 07/25/23 13:51 Room Air 07/25/23 13:21 Room Air 07/25/23 13:05 Room Air 07/25/23 12:55 Room Air 07/25/23 12:45 Room Air 07/25/23 12:35 Room Air 07/25/23 12:26 Room Air 07/25/23 07:40 Room Air Intake and Output 07/25/23 07/26/23 07/26/23 22:59 06:59 14:59 Intake Total 120 / 2620.0 400 / 2620.0 Output Total 750 / 1225 370 / 1225 Balance -630 / 1395.0 30 / 1395.0 Intake: IV 400 / 1100.0 Sodium Chlorid e 0.9% 1,000 ml @ 400 / 400 100 mls/hr IV .Q10H [facility] Rx#: [id number] Oral 120 / 320 Output: Urine 600 / 900 300 / 900 Drain Output 150 / 320 70 / 320 Right Hemovac 150 / 220 70 / 220 Musculoskeletal: Right Leg: NVDI, calf SNT, negative sunny sign. DP palpable, able to wiggle toes/ankle movement without difficulty. dressing clean dry and intact. Results & Data Vital Signs (Past 12 Hours) Vital Signs Temp Pulse Resp BP Pulse Ox O2 Del Method 07/26/23 03:08 36.5 C 69 17 163/83 H 100 Room Air 07/25/23 23:14 36.9 C 62 16 117/75 95 Room Air 07/25/23 20:51 36.6 C 53 L 17 130/77 94 Room Air Laboratory Results Laboratory Results WBC 4.06 K/ul (4.8-10.8) L 07/26/23 06:12 RBC 2.93 M/uL (4.20-5.40) L 07/26/23 06:12 Hgb 8.2 g/dl (12.0-16.0) L 07/26/23 06:12 Hct 25.4 % (37.0-47.0) L 07/26/23 06:12 MCV 86.7 fL (80.0-100.0) 07/26/23 06:12 MCH 28.0 pg (25.0-34.0) 07/26/23 06:12 MCHC 32.3 g/dL (32.0-36.0) 07/26/23 06:12 RDW Std Deviation 44.6 fL (36.4-46.3) 07/26/23 06:12 RDW Coeff of Ashley 14.0 % (11.5-14.5) 07/26/23 06:12 Plt Count 209 K/uL (130-400) 07/26/23 06:12 MPV 9.6 fL (9.4-12.4) 07/26/23 06:12 Immature Gran % (Auto) 0.0 % 07/25/23 07:55 Neut % (Auto) 54.0 % 07/25/23 07:55 Lymph % (Auto) 22.8 % 07/25/23 07:55 Burke % (Auto) 19.3 % 07/25/23 07:55 Eos % (Auto) 2.7 % 07/25/23 07:55 Baso % (Auto) 1.2 % 07/25/23 07:55 Neut # (Auto) 1.40 K/uL (1.40-6.50) 07/25/23 07:55 Lymph # (Auto) 0.59 K/uL (1.20-3.40) L 07/25/23 07:55 Burke # (Auto) 0.50 K/uL (0.11-0.59) 07/25/23 07:55 Eos # (Auto) 0.07 K/uL (0.00-0.50) 07/25/23 07:55 Baso # (Auto) 0.03 K/uL (0.00-0.20) 07/25/23 07:55 Immature Gran # (Auto) 0.00 K/uL (0.01-0.20) L 07/25/23 07:55 Sodium 133 mmol/L (136-145) L 07/26/23 06:12 Potassium 4.1 mmol/L (3.5-5.1) 07/26/23 06:12 Chloride 101 mmol/L (98-107) 07/26/23 06:12 Carbon Dioxide 28 mmol/L (21-32) 07/26/23 06:12 Anion Gap 4 (3-11) 07/26/23 06:12 BUN 11 mg/dl (6-23) 07/26/23 06:12 Creatinine 0.90 mg/dl (0.6-1.2) 07/26/23 06:12 Est Cr Clr Drug Dosing 74.3 ml/min 07/26/23 06:12 Est GFR ( Amer) 77.2 ml/min 07/26/23 06:12 Est GFR (Non-Af Amer) 66.6 ml/min 07/26/23 06:12 BUN/Creatinine Ratio 12.2 (10-20) 07/26/23 06:12 Glucose 97 mg/dl (70-99(Fasting)) 07/26/23 06:12 Calcium 7.9 mg/dl (8.6-10.3) L 07/26/23 06:12 Impressions Knee X-Ray 07/25/23 12:35 XR knee RT 1 or 2V routine HISTORY: 67 years-old Female Surgical Post Op right knee arthroplasty COMPARISON: 01/20/2023 TECHNIQUE: 2 views of the right knee FINDINGS: Total joint arthroplasty with patellar resurfacing. Expected postoperative soft tissue swelling with deep tissue air and surgical drainage catheter. No acute fracture or unexpected opaque foreign body. IMPRESSION: Total joint arthroplasty with expected postoperative changes. ACT 112: Negative or not required by law. The above report was generated using voice recognition software. It may contain grammatical, syntax or spelling errors. Electronically signed by: Philipp Jamse M.D. 07/25/2023 2:23 PM
[2023-07-26] MEDS: ASPIRIN 81 MG ECTAB PO SCH (08:17)
[2023-07-26] MEDS: DOCUSATE SODIUM 100 MG CAP PO SCH (08:17)
[2023-07-26] MEDS: ENALAPRIL MALEATE 10 MG TAB PO SCH (08:18)
[2023-07-26] MEDS: ARTIFICIAL TEARS OP SCH (08:19)
[2023-07-26] MEDS ORDERED: CHOLECALCIFEROL 5,000 UNITS 125 MCG TAB PO SCH (09:00)
[2023-07-26] MEDS ORDERED: hydroCHLOROthiazide 25 MG TAB PO SCH (09:00)
[2023-07-26] MEDS ORDERED: SERTRALINE HCL 100 MG TABLET PO SCH (09:00)
[2023-07-26] MEDS ORDERED: estradioL 1 MG TAB PO SCH (09:00)
[2023-07-26] MEDS ORDERED: PANTOprazole 40 MG TAB PO SCH (09:00)
[2023-07-26] MEDS ORDERED: MULTIVITAMIN TAB PO SCH (09:00)
--- NOTE | 2023-07-28 16:25 | Discharge Summary ---
Date of Service July 28, 2023 Admission HPI Per Admitting Provider Silvia is a 67 year old female who complains of right knee pain, presented for pre-op evaluation prior to a right total knee replacement by Dr Benitez at [facility]. She complains of pain and decreased range of motion in the right knee. she states that the symptoms have been chronic and non-traumatic. Currently the patient states that the symptoms are moderate-severe and is described as aching, sharp and throbbing. Her symptoms are aggravated by ascending stairs, daily activities, first steps while awake walking. Prior NSAIDs include IBU and Aleve. She has been treated with previous visco and cortisone injections in the past without much relief. Admission Exam Per Admitting Provider Physical Exam: HT: 5ft 8.5in WT: 95.5kg Constitutional: WD/WN, vitals as above no acute distress Respiratory: normal respiratory effort, lungs clear to auscultation no respiratory distress, no labored breathing and does not use accessory muscles Cardiovascular: RRR, no murmur, no edema Gastrointestinal (Abdomen): normal bowel sounds, soft, nontender, no hepatosplenomegaly Musculoskeletal: Knee: + knee abnormal to inspection (RIGHT KNEE), + effusion (+1 effusion), + surgical incision (well healed portals), + limited ROM of knee (ROM 0/3/110), + knee ROM with crepitation, + joint line tenderness (medial joint line) and + Vaughn's sign positive; no deformity, no skin erythema, no ecchymosis, no valgus laxity, no varus laxity, anterior drawer test negative, Francisco's sign negative and pivot shift test negative Principal Diagnosis Right Knee Osteoarthritis Discharge Data Allergies Allergy/AdvReac Type Severity Reaction Status Date / Time oxycodone Allergy Intermediate nausea and Verified 07/25/23 08:08 vomiting amoxicillin [From Augmentin] Allergy Mild BLISTERS Verified 07/25/23 08:08 clavulanic acid Allergy Mild BLISTERS Verified 07/25/23 08:08 [From Augmentin] doxycycline Allergy Mild rash on Verified 07/25/23 08:08 face Sulfa (Sulfonamide Allergy Mild BLISTERS Verified 07/25/23 08:08 Antibiotics) nickel Allergy swelling Verified 07/25/23 08:08 of ears morphine AdvReac Intermediate PARANOID Verified 07/25/23 08:08 Procedures Performed Operation Date: 07/25/23 09:25 Actual Procedures p Right Total Knee Arthroplasty(Right) - Yony Benitez DO Ordered Studies 07/25/23 05:00 US - OR guided needle placemen Routine Hospital Course (1) History of total right knee replacement: Patient: SILVIA DENSON Admit Date: 07/25/23 MR#: [id number] Att Phy: Yony Benitez,D.O. Acct ID: [id number] Rosalia Phy: YelitzajodyLu, Date: 1955 Fam Phy: Age: 67 Location: 3E Sex: F Room/Bed: [facility] cc: ~ *NOTICE TO RECEIVING LIBERTARIAN/AGENCY This information is strictly Confidential and protected under [place] law. [place] law prohibits you from making any further disclosure of this information unless further disclosure is expressly permitted by the written consent of the person to whom it pertains or is authorized by law. A general authorization for the release of medical or other information is not sufficient for this purpose. Hospital accepts no responsibility if the information is made available to any other person, INCLUDING THE PATIENT. Date of Service July 26, 2023 Assessment & Plan (1) History of total right knee replacement: Plan: POD #1 s/p Right TKA pt/ot dvt proph with [facility]IAM/SCD/ASA plan for d/c home with HHPT when stable Admission and Anticipated Discharge Date Admission Date: July 25, 2023 Subjective POD #1 s/p Right TKA Review of Systems Constitutional: no fever, no chills and no sweats Respiratory: no cough and no dyspnea Cardiovascular: no chest pain and no dyspnea Gastrointestinal: no abdominal pain, no nausea and no vomiting Physical Exam Physical Exam: Vital Signs Temp Pulse Pulse Resp BP BP Pulse Ox 07/26/23 03:08 36.5 C 69 17 163/83 H 100 07/25/23 23:14 36.9 C 62 16 117/75 95 07/25/23 20:51 36.6 C 53 L 17 130/77 94 07/25/23 18:53 36.8 C 62 16 111/75 97 07/25/23 16:29 36.6 C 58 L 20 118/74 93 07/25/23 15:31 36.8 C 63 20 113/72 93 07/25/23 14:26 37.1 C 62 14 129/77 96 07/25/23 13:51 36.3 C L 57 L 16 124/79 94 07/25/23 13:21 36.5 C 55 L 16 126/83 94 07/25/23 13:05 60 15 126/71 94 07/25/23 12:55 36.4 C L 57 L 18 127/73 95 07/25/23 12:45 56 L 17 139/73 93 07/25/23 12:35 56 L 16 131/67 94 07/25/23 12:26 37.2 C 78 12 128/82 98 07/25/23 07:40 37.2 C 70 18 158/96 H 98 O2 Del Method 07/26/23 03:08 Room Air 07/25/23 23:14 Room Air 07/25/23 20:51 Room Air 07/25/23 18:53 Room Air 07/25/23 16:29 Room Air 07/25/23 15:31 Room Air 07/25/23 14:26 Room Air 07/25/23 13:51 Room Air 07/25/23 13:21 Room Air 07/25/23 13:05 Room Air 07/25/23 12:55 Room Air 07/25/23 12:45 Room Air 07/25/23 12:35 Room Air 07/25/23 12:26 Room Air 07/25/23 07:40 Room Air Intake and Output 07/25/23 07/26/23 07/26/23 22:59 06:59 14:59 Intake Total 120 / 2620.0 400 / 2620.0 Output Total 750 / 1225 370 / 1225 Balance -630 / 1395.0 30 / 1395.0 Intake: IV 400 / 1100.0 Sodium Chlorid e 0.9% 1,000 ml @ 400 / 400 100 mls/hr IV .Q10H [facility] Rx#: [id number] Oral 120 / 320 Output: Urine 600 / 900 300 / 900 Drain Output 150 / 320 70 / 320 Right Hemovac 150 / 220 70 / 220 Musculoskeletal: Right Leg: NVDI, calf SNT, negative sunny sign. DP palpable, able to wiggle toes/ankle movement without difficulty. dressing clean dry and intact. Results & Data Vital Signs (Past 12 Hours) Vital Signs Temp Pulse Resp BP Pulse Ox O2 Del Method 07/26/23 03:08 36.5 C 69 17 163/83 H 100 Room Air 07/25/23 23:14 36.9 C 62 16 117/75 95 Room Air 07/25/23 20:51 36.6 C 53 L 17 130/77 94 Room Air Laboratory Results Laboratory Results WBC 4.06 K/ul (4.8-10.8) L 07/26/23 06:12 RBC 2.93 M/uL (4.20-5.40) L 07/26/23 06:12 Hgb 8.2 g/dl (12.0-16.0) L 07/26/23 06:12 Hct 25.4 % (37.0-47.0) L 07/26/23 06:12 MCV 86.7 fL (80.0-100.0) 07/26/23 06:12 MCH 28.0 pg (25.0-34.0) 07/26/23 06:12 MCHC 32.3 g/dL (32.0-36.0) 07/26/23 06:12 RDW Std Deviation 44.6 fL (36.4-46.3) 07/26/23 06:12 RDW Coeff of Ashley 14.0 % (11.5-14.5) 07/26/23 06:12 Plt Count 209 K/uL (130-400) 07/26/23 06:12 MPV 9.6 fL (9.4-12.4) 07/26/23 06:12 Immature Gran % (Auto) 0.0 % 07/25/23 07:55 Neut % (Auto) 54.0 % 07/25/23 07:55 Lymph % (Auto) 22.8 % 07/25/23 07:55 Jay % (Auto) 19.3 % 07/25/23 07:55 Eos % (Auto) 2.7 % 07/25/23 07:55 Baso % (Auto) 1.2 % 07/25/23 07:55 Neut # (Auto) 1.40 K/uL (1.40-6.50) 07/25/23 07:55 Lymph # (Auto) 0.59 K/uL (1.20-3.40) L 07/25/23 07:55 Jay # (Auto) 0.50 K/uL (0.11-0.59) 07/25/23 07:55 Eos # (Auto) 0.07 K/uL (0.00-0.50) 07/25/23 07:55 Baso # (Auto) 0.03 K/uL (0.00-0.20) 07/25/23 07:55 Immature Gran # (Auto) 0.00 K/uL (0.01-0.20) L 07/25/23 07:55 Sodium 133 mmol/L (136-145) L 07/26/23 06:12 Potassium 4.1 mmol/L (3.5-5.1) 07/26/23 06:12 Chloride 101 mmol/L (98-107) 07/26/23 06:12 Carbon Dioxide 28 mmol/L (21-32) 07/26/23 06:12 Anion Gap 4 (3-11) 07/26/23 06:12 BUN 11 mg/dl (6-23) 07/26/23 06:12 Creatinine 0.90 mg/dl (0.6-1.2) 07/26/23 06:12 Est Cr Clr Drug Dosing 74.3 ml/min 07/26/23 06:12 Est GFR ( Amer) 77.2 ml/min 07/26/23 06:12 Est GFR (Non-Af Amer) 66.6 ml/min 07/26/23 06:12 BUN/Creatinine Ratio 12.2 (10-20) 07/26/23 06:12 Glucose 97 mg/dl (70-99(Fasting)) 07/26/23 06:12 Calcium 7.9 mg/dl (8.6-10.3) L 07/26/23 06:12 Impressions Knee X-Ray 07/25/23 12:35 XR knee RT 1 or 2V routine HISTORY: 67 years-old Female Surgical Post Op right knee arthroplasty COMPARISON: 01/20/2023 TECHNIQUE: 2 views of the right knee FINDINGS: Total joint arthroplasty with patellar resurfacing. Expected postoperative soft tissue swelling with deep tissue air and surgical drainage catheter. No acute fracture or unexpected opaque foreign body. IMPRESSION: Total joint arthroplasty with expected postoperative changes. ACT 112: Negative or not required by law. The above report was generated using voice recognition software. It may contain grammatical, syntax or spelling errors. Electronically signed by: Philipp James M.D. 07/25/2023 2:23 PM Signed By: <Electronically signed by Otto Thorpe PA-C> 07/26/23 0716 <Electronically signed by Vladimir Marie MD> 07/26/23 1343 Created: 07/26/23 0714 Total Time Total Time Spent Total Time Spent (In Minutes): 5 Discharge Plan Discharge Items Patient Disposition: Home - Home Health Services Reason For Visit: Right Knee Osteoarthritis Discharge Diagnosis: Right Knee Osteoarthritis Activity: Per Instructions section Weightbearing: Full weightbearing Non-emergency contact: Surgeon Call non-emergency contact if: you have any medication questions, your pain is not controlled, your temperature is above 101.5, your wound has increased redness and your wound has increased drainage Follow-up/Referrals: Lu Rosales DO [Primary Care Provider] - Yony Benitez DO [Surgeon] - (Follow up with Dr Benitez or his PA in 2 weeks from the day of your surgery for your first post operative visit.) Diet: Regular Addtl Attending Provider Instructions: ACTIVITY RECOMMENDATIONS: SELF CARE INSTRUCTIONS AFTER TOTAL KNEE REPLACEMENT A. You may need to continue a physical therapy program after discharge from the hospital. There are several options available to you. Your doctor will assist you in selecting the best one for you. 1. An out-patient facility 2 to 3 times a week for therapy or home therapy. 2. Continue working on all exercises taught to you in the hospital. Your goals should be to increase bending of your knee to 90 degrees and beyond and to fully straighten your knee. B. You may progress at your own pace from walking with a walker or crutches to a cane; then to no assistive devices. C. Make walking a part of your daily routine. Be up as much as comfortable with rest periods throughout the day. Rest with leg elevation is very important. Use the ice wrap frequently for the first 3-4 weeks. D. There are no restrictions on activities. You may ride in a car, shop, participate in drill press set up operator and all social activities. E. Wear the long elastic stockings (WILLIAM hose) 20 hours a day for 2 weeks after surgery. They can be removed several times a day for laundering and for a bath. F. You may shower, no tub baths until cleared by your doctor. SPECIAL CARE INSTRUCTIONS: VERY IMPORTANT TO READ AND REVIEW A. There are a few signs you need to watch for after you are home. Call [facility] if you notice any of the followin. Increased severe knee pain. Some pain is expected especially when you exercise. 2. Increased swelling in your leg or knee; pain or swelling of the calf muscle in either lower leg. 3. Any fluid drainage from the incision. 4. Shortness of breath or chest pain. B. Please call [facility] at if you have any concerns or questions about your operation or recovery. The doctor or his nurse will return your call promptly. C. You must take antibiotics before dental work, bladder, bowel or other surgery. Your doctor will provide you with a permanent care to carry describing this precaution. IMPORTANT: * REMEMBER TO TAKE ASPIRIN, 81 MG, TWICE DAILY FOR 4 WEEKS UNLESS OTHERWISE DIRECTED. THIS IS YOUR BLOOD THINNER. * HIGH RISK PATIENTS MAY BE PRESCRIBED A STRONGER BLOOD THINNER. THIS WILL BE PROVIDED AT DISCHARGE. * CALL IF INCREASED PAIN, REDNESS, DRAINAGE OR FEVER GREATER THAT 101. * WEAR WILLIAM HOSE 20 HOURS PER DAY FOR 2 WEEKS. * Cristi Dressing - This is a large suction dressing covering your incision. This will help pull any excess drainage from the wound and allow your incision to heal properly. You may shower with this if you can keep the unit outside of the shower. If any bleeding or leakage is noted please call your doctor's office. This will remain on your incision for 7 days and then should be removed . This can be done yourself or by the home nursing staff if applicable. The entire unit is disposable once removed. Once removed, keep incision clean and dry. If redness or drainage is noted, please call your surgeon. [phone]. FOLLOW UP VISIT: If appointment is not already scheduled: Please call [facility] to make a follow-up appointment for 2 weeks after your surgery at . Pending Studies at Discharge: No Stand-Alone Forms: [employer], Pain - Opioid Pain Management, Smoking Cessation Medications and DC Order Prescriptions: New aspirin 81 mg Tablet,Delayed Release (Dr/Ec) 81 mg PO BID 30 Days Qty: 60 0RF hydrocodone-acetaminophen 5-325 mg Tablet 1 - 2 tab PO Q6H PRN (Reason: pain) Qty: 30 0RF Rx Instructions: ongoing therapy, supervising Dr Marty Benitez. Max 6 tabs in 24 hours docusate sodium 100 mg Capsule 100 mg PO BID 10 Days Qty: 20 0RF clindamycin HCl 300 mg capsule 300 mg PO TID 7 Days Qty: 21 0RF Continued ivermectin [Soolantra] 1 % cream 1 applic topical DAILY Qty: 45 2RF Rx Instructions: Apply to face once daily as directed. atorvastatin 20 mg tablet 20 mg PO QPM Qty: 90 2RF famotidine 20 mg tablet 20 mg PO HS Qty: 90 1RF cevimeline 30 mg capsule 30 mg PO BID Qty: 180 1RF enalapril maleate 20 mg tablet 20 mg PO BID Qty: 180 3RF diclofenac sodium 1 % gel 2 g topical QID PRN (Reason: Pain) Qty: 100 0RF Rx Instructions: apply to single elbow, wrist or hand; for hand includes palm/fingers/back of hand coenzyme Q10 [Co Q-10] 100 mg capsule 100 mg PO DAILY omeprazole 40 mg capsule,delayed release(DR/EC) 40 mg PO QAM carboxymethylcellulose sodium [Refresh Tears] 0.5 % drops 1 drp ophthalmic (eye) BID cholecalciferol (vitamin D3) 125 mcg (5,000 unit) capsule 125 mcg PO DAILY cetirizine [Zyrtec] 10 mg Tablet 10 mg PO DAILY PRN (Reason: ALLERGY RELIEF) sertraline 100 mg tablet 100 mg PO QAM Patient Comments: QAM levothyroxine 75 mcg tablet 75 mcg PO QAM estradiol 1 mg tablet 1 mg PO QAM hydrochlorothiazide 25 mg tablet 25 mg PO QAM Patient Comments: QAM fluticasone propionate [Flonase Allergy Relief] 50 mcg/actuation spray,suspension 2 spray intranasal DAILY PRN (Reason: Congestion) Rx Instructions: administer into each nostril Held hydroxychloroquine 200 mg tablet 200 mg PO BID Qty: 180 1RF Hold Instructions: Hold your Hydroxychloroquine for 2 weeks. Discuss restarting your medication with Dr Benitez on your first post operative visit. omega-3 fatty acids [Fish Oil Concentrate] 1,000 mg capsule 1,000 mg PO DAILY Qty: 30 0RF Hold Instructions: Resume in 2 weeks from the day of your surgery Discontinued diclofenac sodium 75 mg tablet,delayed release (DR/EC) 150 mg PO QAM Qty: 60 0RF Krames/Other Patient Handouts: DVT Post Op Prevention, Total Knee Replacement, Knee Replacement Total Dc Admission Data Admit Date/Time: 07/25/23 12:35 Attending Provider: Yony Benitez Admit Provider: Yony Benitez Primary Care Provider: Lu Rosales Other Interventions: Discharge Summary Assessment (RN) Last Done: 07/26/23 11:29
== END 2023-07-26 12:21 | disposition home health service (06) ==
LOC: 3E 07:14 → ASU 07:14
DX: Z88.5 Allergy status to narcotic agent; Z79.899 Other long term (current) drug therapy; M17.11 Unilateral primary osteoarthritis, right knee; Z88.1 Allergy status to other antibiotic agents; Z79.890 Hormone replacement therapy; Z88.2 Allergy status to sulfonamides